=== PATIENT | male | born 1980 | race American Indian/Alaskan Native ===

== ENCOUNTER 2021-01-26 07:47 | Emergency (ER) | payer SELFPAY ==
[2021-01-26] MEDS ORDERED: TETANUS,DIPH,PERTUSS(ACELL) VACCINE 0.5 ML SYRINGE IM ONE (09:22)
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
[2021-01-26] MEDS ORDERED: IBUPROFEN 800 MG TAB PO ONE (09:34)
[2021-01-26 12:40] VITALS: BP 171/106
== END 2021-01-26 12:43 | disposition home or self-care (01) ==
LOC: ED 07:47
DX: S01.112A Laceration without foreign body of left eyelid and periocular area, initial encounter (principal); Y08.89XA Assault by other specified means, initial encounter; Y93.89 Activity, other specified; Y92.89 Other specified places as the place of occurrence of the external cause; Y99.8 Other external cause status
CPT/HCPCS: 90471; 90715; 99282